=== PATIENT | female | born 1945 | race Caucasian/White ===

== ENCOUNTER → 2018-04-16 | Outpatient (CLI) | payer MEDICARE, OTHER ==
[~2018-04-16] MED LIST: ALP1 PO; ALP5 PO; ALPR-448 PO; AMLO-98 PO; CELE-1 PO; CELE100C79 PO; CELE50CA2 PO; ESCI20TA38 PO; FENO45CA2 PO; FLU10 PO; HYDR-2966 PO; LAMO100T52 PO; MON10 PO; MON4 PO; NEBI10TA4 PO; QUET200T29 PO; SIMV-42 PO; SIMV10TA98 PO
== END ==
LOC: RESP 20:52
PROVIDERS: ATTEND Nurse Practitioner Psychiatric/Mental Health
DX: G47.33 Obstructive sleep apnea (adult) (pediatric) (principal); G47.36 Sleep related hypoventilation in conditions classified elsewhere; G47.61 Periodic limb movement disorder

== ENCOUNTER 2018-09-23 10:07 | Emergency (ER) | payer MEDICARE, OTHER ==
[2018-09-23 10:11] VITALS: BP 160/99
--- NOTE | 2018-09-23 10:37 | ER Report ---
History and Physical Time Seen By MD: 10:00 Hx. of Stated Complaint: NOSE BLEEDE ON AND OFF SINCE FRIDAY. PT STATES IT IS RELATED TO HER CPAP MACHINE HPI/ROS CHIEF COMPLAINT: Nosebleed HISTORY OF PRESENT ILLNESS: 72-year-old female on chronic CPAP at home is had frequent episodes of epistaxis was told by her primary to come to the emergency department for bilateral cauterization arrival she is no longer actively bleeding we had a discussion about referral to ENT for further delineate workup she has no history of trauma this is been a frequent recurring episodes for her she has no additional complaints noted again not actively bleeding on arrival REVIEW OF SYSTEMS: Respiratory: No cough, no dyspnea. Cardiovascular: No chest pain, no palpitations. Gastrointestinal: No vomiting, no abdominal pain. Musculoskeletal: No back pain. Remainder of the 14 system rev: Yes Allergies: Coded Allergies: No Known Drug Allergies (Unverified , 10/23/17) Home Meds Reported Medications Alprazolam 0.5 Mg Tab (ALPRAZOLAM 0.5 MG TAB) 0.5 Mg Tablet, 0.5 MG PO HS, TAB 10/23/17 Celecoxib (CELEBREX) 200 Mg Capsule, 1 TAB PO BID, CAPSULE 10/23/17 Nebivolol Hcl (BYSTOLIC) 10 Mg Tab, 1 TAB PO QDAY, TAB 10/23/17 Simvastatin (SIMVASTATIN) 10 Mg Tablet, 1 TAB PO HS, TAB 10/23/17 Hydrochlorothiazide (HYDROCHLOROTHIAZIDE) 25 Mg Tablet, 1 TAB PO QDAY, TAB 10/23/17 Reviewed Nurses Notes: Yes Old Medical Records Reviewed: Yes Smoking Status: Never Smoker Constitutional Vital Sign - Last 24 Hours 09/23/18 10:11 Temp 97.6 Pulse 60 Resp 18 B/P (MAP) 160/99 Pulse Ox 93 O2 Delivery Room Air Physical Exam General appearance: Alert no distress. Respiratory: Chest is non tender, lungs are clear to auscultation. Cardiac: Regular rate and rhythm [ ] Nasal examination patient has no current epistaxis no dry blood. Normal costal box plexus no deviation or septal deviation or septal hematoma otherwise unremarkable exam DIFFERENTIAL DIAGNOSIS: After history and physical exam differential diagnosis was considered for epistaxis Medical Decision Making ED Course/Re-evaluation ED Course ED clinical course this is sono female on CPAP who is having frequent nosebleeds she's not currently bleeding was sent here by her primary care requesting cauterization which is inappropriate at this time will send her to learning support assistant showed positive for the end of this month and hopefully cancellation sooner she is currently stable at this time Reason to do intervention or testing Decision to Disposition Date: Sep 23, 2018 Decision to Disposition Time: 10:51 Depart Departure Latest Vital Signs Vital Signs Date Time Temp Pulse Resp B/P (MAP) Pulse Ox O2 Delivery O2 Flow Rate FiO2 09/23/18 10:11 97.6 60 18 160/99 93 Room Air Impression: Primary Impression: Bleeding nose Condition: Condition Unchanged Disposition: HOME OR SELF-CARE Referrals: AMANDA FERNANDEZ (PCP) YANETH EDWARDS JR, MD, KENNETH R MD Sep 23, 2018 10:37
== END 2018-09-23 11:02 | disposition home or self-care (01) ==
LOC: ER 10:18
DX: R04.0 Epistaxis (principal)
CPT/HCPCS: 99281